=== PATIENT | female | born 2000 | race Caucasian/White ===

== ENCOUNTER 2020-02-28 00:32 | Emergency (ER) | payer MEDICAID ==
[~2020-02-28] VITALS: Ht 158.8 cm; Wt 58.2 kg
[2020-02-28] MEDS ORDERED: INFL100I IV (00:51)
[2020-02-28 01:38] VITALS: BP 119/68
[2020-02-28] MEDS ORDERED: ACETAMINOPHEN 500 MG TABLET PO ONE (02:30)
== END 2020-02-28 02:18 | disposition home or self-care (01) ==
LOC: EMS 00:33
DX: M25.532 Pain in left wrist (principal); J45.909 Unspecified asthma, uncomplicated; Z87.81 Personal history of (healed) traumatic fracture; Z46.89 Encounter for fitting and adjustment of other specified devices

== ENCOUNTER 2020-02-29 23:17 | Emergency (ER) | payer MEDICAID ==
[~2020-02-29] VITALS: Ht 157.5 cm; Wt 58.0 kg
[~2020-02-29 23:17] MED LIST: INFL100I IV
[2020-03-01 00:42] VITALS: BP 117/62
== END 2020-03-01 01:07 | disposition home or self-care (01) ==
LOC: EMS 23:17
DX: O26.891 Other specified pregnancy related conditions, first trimester (principal); R10.2 Pelvic and perineal pain; Z3A.09 9 weeks gestation of pregnancy
CPT/HCPCS: 76801; 76817; Z7502